=== PATIENT | male | born 1965 | race Caucasian/White ===

== ENCOUNTER 2018-04-30 21:48 | Emergency (ER) | payer OTHER ==
[~2018-04-30] VITALS: Ht 167.6 cm; Wt 77.1 kg
[2018-04-30 21:55] VITALS: BP 129/94
[2018-04-30] MEDS ORDERED: ASPIRIN 81 MG TAB.CHEW PO ONE (22:05)
[2018-04-30] MEDS ORDERED: KETOROLAC 30 MG/ML VIAL IVP ONE (22:05)
[2018-04-30] MEDS ORDERED: NACL 0.9% 1,000 ML IV ONE (22:05)
[2018-04-30 22:28] LABS: BASOPHILS # (AUTO) 0.1 K/uL (0.00-0.22); BASOPHILS % (AUTO) 0.6 % (0.0-2.0); EOSINOPHILS # (AUTO) 0.6 K/uL (0-0.4); EOSINOPHILS % (AUTO) 5.2 % (0.0-4.0); HEMATOCRIT 43.8 % (36-52); HEMOGLOBIN 14.6 g/dL (12.0-18.0); LYMPHOCYTES # (AUTO) 1.5 K/uL (2.0-11.5); LYMPHOCYTES % (AUTO) 14.4 % (20.5-51.1); MEAN CORPUSCULAR HEMOGLOBIN 30 pg (27-31); MEAN CORPUSCULAR HGB CONC 33 g/dL (33-37); MEAN CORPUSCULAR VOLUME 91.3 fL (80-94); MONOCYTES # (AUTO) 0.8 K/uL (0.8-1.0); MONOCYTES % (AUTO) 7.4 % (1.7-9.3); NEUTROPHILS # (AUTO) 7.6 K/uL (1.8-7.7); NEUTROPHILS % (AUTO) 72.4 % (42.2-75.2); PLATELET COUNT (AUTO) 242 K/uL (140-450); RED CELL DISTRIBUTION WIDTH 13.4 % (11.6-13.7); WHITE BLOOD COUNT (AUTO) 10.6 K/uL (4.8-10.8)
[2018-04-30 22:34] LABS: ANION GAP 11.7 (8-16); CREATININE 0.9 mg/dL (0.7-1.3); POTASSIUM 3.7 mmol/L (3.5-5.1)
[2018-04-30 22:45] LABS: TOTAL BILIRUBIN 0.4 mg/dL (0.0-1.0)
[2018-04-30 22:52] LABS: PROTHROMBIN TIME 9.8 secs (10.8-13.4)
[2018-04-30] MEDS ORDERED: ALBUTEROL SULFATE/IPRATROPIU 3 ML SOL IH ONE (23:00)
[2018-04-30] MEDS ORDERED: methylPREDNISolone SS 125 MG/2 ML VIAL IVP ONE (23:00)
[2018-05-01] MEDS ORDERED: ALBUTEROL SULFATE/IPRATROPIU 3 ML SOL IH ONE (00:15)
[2018-05-01 01:00] VITALS: BP 120/82
== END 2018-05-01 01:00 | disposition home or self-care (01) ==
LOC: MED 21:48
DX: J45.909 Unspecified asthma, uncomplicated (principal)
CPT/HCPCS: 36415; 71045; 80053; 84484; 85025; 85610; 85730; 93005; 94640; 96374; 96375; 99284; J1885; J2930; J7030; J7620; Q0092

== ENCOUNTER 2018-07-18 21:28 | Emergency (ER) | payer OTHER ==
[~2018-07-18] VITALS: Ht 172.7 cm; Wt 81.6 kg
[2018-07-18 21:43] VITALS: BP 120/89
--- NOTE | 2018-07-18 21:44 | NUR ---
TO BED # 06 ambulatory
--- NOTE | 2018-07-18 21:58 | NUR ---
PT TO ED WITH C/O SOB X 4 DAYS. PT DENIES CP AT THIS TIME. RHONCI HEARD TO RT LOBES. LUNG SOUNDS CLEAR TO LEFT SIDE. NO OBVIOUS DISTRESS NOTED. PT PLACED INTO BED, PENDING MD VARNER. PMH--ASTHMA NKA
--- NOTE | 2018-07-18 22:17 | NUR ---
X-Ray at bedside.
[2018-07-18 22:31] LABS: BASOPHILS # (AUTO) 0.1 K/uL (0.00-0.22); BASOPHILS % (AUTO) 0.8 % (0.0-2.0); EOSINOPHILS # (AUTO) 0.7 K/uL (0-0.4); EOSINOPHILS % (AUTO) 8.8 % (0.0-4.0); HEMATOCRIT 43.4 % (36-52); HEMOGLOBIN 14.8 g/dL (12.0-18.0); LYMPHOCYTES # (AUTO) 2.5 K/uL (2.0-11.5); LYMPHOCYTES % (AUTO) 29.4 % (20.5-51.1); MEAN CORPUSCULAR HEMOGLOBIN 31 pg (27-31); MEAN CORPUSCULAR HGB CONC 34 g/dL (33-37); MEAN CORPUSCULAR VOLUME 89.4 fL (80-94); MONOCYTES # (AUTO) 0.8 K/uL (0.8-1.0); MONOCYTES % (AUTO) 9.3 % (1.7-9.3); NEUTROPHILS # (AUTO) 4.4 K/uL (1.8-7.7); NEUTROPHILS % (AUTO) 51.7 % (42.2-75.2); PLATELET COUNT (AUTO) 241 K/uL (140-450); RED BLOOD CELL COUNT(AUTO) 4.86 MIL/uL (4.20-6.10); RED CELL DISTRIBUTION WIDTH 13.4 % (11.6-13.7); WHITE BLOOD COUNT (AUTO) 8.5 K/uL (4.8-10.8)
[2018-07-18 23:18] LABS: ALBUMIN 3.9 g/dL (3.4-5.0); ANION GAP 13.3 (8-16); CARBON DIOXIDE 29.7 mmol/L (21-32); CREATININE 1.1 mg/dL (0.7-1.3); TOTAL BILIRUBIN 0.3 mg/dL (0.0-1.0)
[2018-07-18] MEDS ORDERED: ALBUTEROL SULFATE/IPRATROPIU 3 ML SOL IH ONE (23:30)
--- NOTE | 2018-07-18 23:40 | NUR ---
Respiratory Therapist at bedside for respiratory intervention.
[2018-07-19 00:04] LABS: CREATINE KINASE MB 1.8 ng/mL (0-3.6)
--- NOTE | 2018-07-19 00:06 | NUR ---
PT LAYING IN BED, FAMILY AT BEDSIDE. PT REPORTS IMPROVEMENT IN SOB, RR EVEN AND UNLABORED. LUNG SOUNDS CLEAR BL. VSS. ALL NEEDS MET.
[2018-07-19 00:49] VITALS: BP 115/78
--- NOTE | 2018-07-19 00:49 | NUR ---
Patient discharged with v/s stable. Written and verbal after care instructions given and explained. Patient alert, oriented and verbalized understanding of instructions. Ambulatory with steady gait. All questions addressed prior to discharge. ID band removed. Patient advised to follow up with PMD. Rx of PREDNISONE, ALBUTEROL given. Patient educated on indication of medication including possible reaction and side effects. Opportunity to ask questions provided and answered.
== END 2018-07-19 00:49 | disposition home or self-care (01) ==
LOC: MED 21:28
DX: J45.901 Unspecified asthma with (acute) exacerbation (principal)
CPT/HCPCS: 36415; 71045; 80053; 82550; 82553; 83690; 84484; 85025; 85379; 93005; 94640; 94760; 99284; J7620

== ENCOUNTER 2018-08-14 21:48 | Emergency (ER) | payer OTHER ==
[~2018-08-14] VITALS: Ht 172.7 cm; Wt 81.6 kg
[2018-08-14 22:06] VITALS: BP 131/86
--- NOTE | 2018-08-14 22:09 | NUR ---
TO LOBBY A/W BED, XRAY, JOANNA, ERMD NOTED
--- NOTE | 2018-08-14 22:31 | NUR ---
PT AMBULATED TO BED 8. ACCOMPANIED BY FAMILY.
--- NOTE | 2018-08-14 22:36 | NUR ---
PT PRESENTS TO THE ED WITH C/O DIFFICULTY BREATHING . PER PATIENT HE WAS PRESCRIBED MEDICATIONS FOR HIS ASTHMA BUT RAN OUT AND WAS UNABLE TO SET UP AN APPOINTMENT WITH HIS DOCTOR. PATIENT REPORTS OF PRODUCTIVE COUGH. NO COUGHING AT THIS TIME. PT SAT 95% ON ROOM AIR. DIMINISHED LUNG SOUNDS AND EXPITATORY WHEEZING NOTED. NO S/S OF DISTRESS AT THIS TIME. BED LOWERED WITH SIDE RAILS UP. AT BEDSIDE
--- NOTE | 2018-08-14 23:39 | NUR ---
PATIENT BEING EVALUATED BY DR CROCKER
[2018-08-14] MEDS ORDERED: predniSONE 20 MG TAB PO ONE (23:45)
[2018-08-14] MEDS ORDERED: ALBUTEROL SULFATE/IPRATROPIU 3 ML SOL IH ONE (23:45)
[2018-08-14] MEDS ORDERED: IBUPROFEN 600 MG TAB PO ONE (23:45)
[2018-08-15] MEDS ORDERED: ALBUTEROL 0.083% 2.5 MG/3 ML NEBU INH ONE (00:10)
--- NOTE | 2018-08-15 01:11 | NUR ---
Patient discharged with v/s stable. Written and verbal after care instructions given and explained. Patient alert, oriented and verbalized understanding of instructions. Ambulatory with steady gait. All questions addressed prior to discharge. ID band removed. Patient advised to follow up with PMD. Rx of PREDNISONE AND ALBUTEROL given. Patient educated on indication of medication including possible reaction and side effects. Opportunity to ask questions provided and answered.
[2018-08-15 02:07] VITALS: BP 127/79
== END 2018-08-14 23:59 | disposition home or self-care (01) ==
LOC: MED 21:48
DX: R06.02 Shortness of breath (principal); R06.2 Wheezing; R05 Cough
CPT/HCPCS: 71045; 94640; 99284; J7512; J7620; Q0092; 94644; J7613

== ENCOUNTER 2018-09-08 04:23 | Emergency (ER) | payer OTHER ==
[~2018-09-08] VITALS: Ht 170.2 cm; Wt 81.6 kg
[2018-09-08 04:25] VITALS: BP 109/73
--- NOTE | 2018-09-08 04:25 | NUR ---
TO BED # 07 AMBULATORY
--- NOTE | 2018-09-08 04:36 | NUR ---
BIB FAMILY REPORTS SOB, DIFFICULTY BREATHING, FOR THE LAST 4 DAYS. PATIENT LUNGS CLEAR/DIMINISHED BILATERALLY. SITTING UP IN BED. BED IN LOW, LOCKED, POSITION. ERMD MADE AWARE.
--- NOTE | 2018-09-08 04:40 | NUR ---
Dr. Holland evaluating patient at bedside.
[2018-09-08] MEDS ORDERED: ALBUTEROL SULFATE/IPRATROPIU 3 ML SOL IH ONE (04:45)
--- NOTE | 2018-09-08 04:48 | NUR ---
X-Ray at bedside.
--- NOTE | 2018-09-08 04:48 | NUR ---
X-RAY AT BEDSIDE.
--- NOTE | 2018-09-08 04:53 | NUR ---
Respiratory Therapist at bedside for respiratory intervention.
[2018-09-08 05:20] VITALS: BP 109/73
--- NOTE | 2018-09-08 05:21 | NUR ---
Patient discharged with v/s stable. Written and verbal after care instructions given and explained. Patient alert, oriented and verbalized understanding of instructions. Ambulatory with steady gait. All questions addressed prior to discharge. ID band removed. Patient advised to follow up with PMD. Rx of PREDNISONE, ALBUTEROL SULFATE, ALBUTEROL 90MCG, MINIELITE given. Patient educated on indication of medication including possible reaction and side effects. Opportunity to ask questions provided and answered.
== END 2018-09-08 05:21 | disposition home or self-care (01) ==
LOC: MED 04:23
DX: J45.901 Unspecified asthma with (acute) exacerbation (principal)
CPT/HCPCS: 71045; 94640; 99283; J7620; Q0092

== ENCOUNTER 2022-08-19 13:59 | Emergency (ER) | payer OTHER ==
[~2022-08-19] VITALS: Ht 182.9 cm; Wt 72.6 kg
[2022-08-19 14:19] VITALS: BP 123/94
[2022-08-19] MEDS ORDERED: FLUORESCEIN OPTH STRIP 1 MG OP ONE (15:10)
[2022-08-19] MEDS ORDERED: TETRACAINE HCL/PF 0.5% OPTH 4 ML BTL OP ONE (15:10)
[2022-08-19] MEDS ORDERED: ERYT5OIN51 OP (15:51)
[2022-08-19] MEDS ORDERED: IBUP-2213 PO (15:51)
[2022-08-19 16:02] VITALS: BP 123/94
--- NOTE | 2022-08-19 16:02 | NUR ---
Patient discharged with v/s stable. Written and verbal after care instructions given and explained. Patient alert, oriented and verbalized understanding of instructions. Ambulatory with steady gait. All questions addressed prior to discharge. ID band removed. Patient advised to follow up with PMD. Rx of IBUPROFEN, ERYTHROMYCIN (SENT) given. Patient educated on indication of medication including possible reaction and side effects. Opportunity to ask questions provided and answered. WORK NOTE GIVEN
== END 2022-08-19 16:02 | disposition home or self-care (01) ==
LOC: MED 13:59
DX: S05.02XA Injury of conjunctiva and corneal abrasion without foreign body, left eye, initial encounter (principal); X58.XXXA Exposure to other specified factors, initial encounter; Y93.89 Activity, other specified; Y92.89 Other specified places as the place of occurrence of the external cause; Y99.8 Other external cause status
CPT/HCPCS: 99283